=== PATIENT | female | born 1995 | race Caucasian/White ===

== ENCOUNTER 2024-03-01 00:01 | Inpatient (IN) | payer OTHER, SELFPAY ==
[2024-03-01] VITALS (11 sets, daily range): BP systolic 89–122; BP diastolic 55–80; PULSE 82–107; RESP 16–20; TEMP 36.4–37; O2SAT 92–99; BMI 34.8
--- NOTE | 2024-03-01 00:24 | ECG_ITS ---
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
[2024-03-01] MEDS: nicotine 21 mg Patch 1 PATCH TRANSDERMA ×2 (00:55→08:51)
[2024-03-01 01:01] LABS: Charge for UA Resulting for Rev
--- NOTE | 2024-03-01 01:11 | W.ED.PSYCHS ---
HPI - Psych General: Chief Complaint: Psychiatric Symptoms Stated Complaint: 96 Hour Hold Time Seen by Provider: 03/01/24 00:39 History of Present Illness: Patient presents to the ER by police for 96-hour hold. Patient states has been very depressed cannot handle life anymore due to all the stressors anxiety she has. Patient said she tried to jump off a bridge tonight. Patient used to be on Latuda and Zoloft but quit 2 weeks ago due to fatigue and nightmares. Patient says she gets all of her health care through [employer]. Related Data Allergies Allergy/AdvReac Type Severity Reaction Status Date / Time amoxicillin Allergy ALGY-Rash Verified 03/01/24 00:14 Sulfa (Sulfonamide Allergy ALGY-Rash Verified 03/01/24 00:14 Antibiotics) Review of Systems General: Reports: 10 or more systems reviewed and unremarkable except in HPI and below [facility] Female Reproductive History: Date of last menstrual period: 02/24/24 Physical Exam Const: COMMON NORMALS: no acute distress, average body habitus, patient oriented x3, no limitations, healthy appearing, alert and well nourished HENMT: COMMON NORMALS: normocephalic, atraumatic, hearing grossly normal bilaterally, external ears normal, Normal external nose present and moist oral mucous membranes HEAD & SCALP: normocephalic and atraumatic NOSE: Normal external nose present EXTERNAL EAR: Yes external ears normal Neck/C-Spine: COMMON NORMALS: no JVD Chest: COMMONS NORMALS: normal inspection of the chest and normal palpation of entire chest wall Resp: COMMON NORMALS: normal respiratory effort, No retractions, No use of accessory muscles and clear to auscultation bilaterally AUSCULTATION: clear to auscultation bilaterally Cardio: COMMON NORMALS: no JVD, regular rate, regular rhythm, S1 normal heart sound present, S2 normal heart sound present, No gallops present (Cardio), No clicks present (Cardio), No murmurs present (Cardio) and No rub (Cardio) RATE: regular rate RHYTHM: regular rhythm HEART SOUNDS: S1 normal heart sound present and S2 normal heart sound present GI: COMMON NORMALS: Normal to inspection, nondistended, normoactive bowel sounds present, Soft to palpation, No hepatosplenomegaly present and no masses PALPATION: Yes Soft to palpation and Yes No hepatosplenomegaly present Neuro: COMMON NORMALS: patient oriented x3 SENSORIUM/ORIENTATION: Yes alert Course Vital Signs: Vital signs: Vital Signs Temperature 98.2 F 03/01/24 00:09 Pulse Rate 100 03/01/24 00:53 Respiratory Rate 18 03/01/24 00:53 Blood Pressure 117/76 03/01/24 00:09 Pulse Oximetry 99 03/01/24 00:53 MDM - Psych Medical Decision Making Once patient is medically cleared Dr. Paris was consulted who agreed to place patient in MPU for further evaluation treatment. Differential Diagnosis Likely suicidal ideation and depression Medical Records I reviewed the patient's medical records. Lab Data I reviewed the patient's lab results. 03/01/24 01:14 03/01/24 01:14 Laboratory Results WBC 10.98 10^3/uL (3.29-11.43) 03/01/24 01:14 RBC 4.84 10^6/uL (3.85-5.65) 03/01/24 01:14 Hgb 14.00 g/dL (11.27-16.99) 03/01/24 01:14 Hct 42.6 % (36-47) 03/01/24 01:14 MCV 88.0 fl (85-98) 03/01/24 01:14 MCH 28.9 pg (27-33) 03/01/24 01:14 MCHC 32.9 g/dL (30-55) 03/01/24 01:14 RDW 12.7 % (12.1-15.1) 03/01/24 01:14 Plt Count 395 10^3/cmm (157-399) 03/01/24 01:14 MPV 8.9 fL (7.4-10.4) 03/01/24 01:14 Neut % (Auto) 62.7 % 03/01/24 01:14 Lymph % (Auto) 30.2 % 03/01/24 01:14 [place] % (Auto) 5.5 % 03/01/24 01:14 Eos % (Auto) 0.7 % 03/01/24 01:14 Baso % (Auto) 0.4 % 03/01/24 01:14 Neut # (Auto) 6.89 10^3/uL (1.8-7.7) 03/01/24 01:14 Lymph # (Auto) 3.3 10^3/uL (0.8-4.8) 03/01/24 01:14 [place] # (Auto) 0.6 10^3/uL (0.2-0.9) 03/01/24 01:14 Eos # (Auto) 0.1 10^3/uL (0.0-0.8) 03/01/24 01:14 Baso # (Auto) 0.0 10^3/uL (0.0-0.1) 03/01/24 01:14 Nucleated RBC % (auto) 0 % 03/01/24 01:14 Nucleated RBCs # 0.0 /100WBC 03/01/24 01:14 Sodium 145 mmol/L (136-145) 03/01/24 01:14 Potassium 3.5 mmol/L (3.5-5.1) 03/01/24 01:14 Chloride 113 mmol/L (98-107) H 03/01/24 01:14 Carbon Dioxide 20 mmol/L (22-29) L 03/01/24 01:14 Anion Gap 15.5 (5-19) 03/01/24 01:14 BUN 12 mg/dL (6-20) 03/01/24 01:14 Creatinine 0.7 mg/dL (0.5-0.9) 03/01/24 01:14 GFR Calculation 98.9 mL/min (90-130) 03/01/24 01:14 Glucose 134 mg/dL (65-115) H 03/01/24 01:14 Calculated Osmolality 302 mOsm/kg (285-295) H 03/01/24 01:14 Calcium 8.8 mg/dL (8.5-10.5) 03/01/24 01:14 Total Bilirubin 0.2 mg/dL (0.15-1.2) 03/01/24 01:14 AST 19 U/L (0-32) 03/01/24 01:14 ALT 29 U/L (0-33) 03/01/24 01:14 Alkaline Phosphatase 77 U/L (35-105) 03/01/24 01:14 Total Protein 7.2 g/dL (6.6-8.7) 03/01/24 01:14 Albumin 4.0 g/dL (3.5-5.2) 03/01/24 01:14 Globulin 3.2 g/dL (1.3-4.6) 03/01/24 01:14 Urine Color Yellow (Yellow) 03/01/24 00:45 Urine Appearance Cloudy (CLEAR) A 03/01/24 00:45 Urine pH 5.5 (5-7) 03/01/24 00:45 Ur Specific [place] 1.004 (1.005-1.030) L 03/01/24 00:45 Urine Protein Negative (Negative) 03/01/24 00:45 Urine Glucose (UA) Negative (Normal) 03/01/24 00:45 Urine Ketones Negative (Negative) 03/01/24 00:45 Urine Blood Negative (Negative) 03/01/24 00:45 Urine Nitrate Negative (Negative) 03/01/24 00:45 Urine Bilirubin Negative (Negative) 03/01/24 00:45 Urine Urobilinogen 0.2 mg/dL (Negative) 03/01/24 00:45 Ur Leukocyte Esterase Negative (Negative) 03/01/24 00:45 Urine RBC 0-2 /hpf (0-2) 03/01/24 00:45 Urine WBC 6-10 /hpf (0-5) 03/01/24 00:45 Ur Squamous Epith Cells 6-10 /hpf (0-5) 03/01/24 00:45 Amorphous Sediment Not Reportable 03/01/24 00:45 Urine Bacteria Trace /hpf (NONE) 03/01/24 00:45 Hyaline Casts 0-4 /lpf H 03/01/24 00:45 Salicylates < 0.3 mg/dL (3-10) L 03/01/24 01:14 Urine Opiates Screen Negative ng/mL (Negative) 03/01/24 00:45 Acetaminophen < 5.0 ug/mL (10-30) L 03/01/24 01:14 Ur Barbiturates Screen Negative ng/mL (Negative) 03/01/24 00:45 Ur Phencyclidine Scrn Negative ng/mL (Negative) 03/01/24 00:45 Ur Amphetamines Screen Negative ng/mL (Negative) 03/01/24 00:45 U Benzodiazepines Scrn Negative ng/mL (Negative) 03/01/24 00:45 Urine Cocaine Screen Negative ng/mL (Negative) 03/01/24 00:45 U Marijuana (THC) Screen Negative ng/mL (Negative) 03/01/24 00:45 Ethyl Alcohol < 10 mg/dL (0-10) 03/01/24 01:14 No radiology studies performed this visit Discharge Plan Discharge Patient Disposition: Admitted As Inpatient Clinical Impression: Suicidal ideation Depression Qualifiers: Depression Type: unspecified Qualified Code(s): F32.A - Depression, unspecified Condition: Stable Coding Level of Care Code ED 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
[2024-03-01 01:13] LABS: Bacteria Urine Trace /hpf; Hyaline Casts Urine 0-4 /lpf; RBC Urine 0-2 /hpf (0-2)
[2024-03-01 01:20] LABS: Amphetamines Screen Urine Negative (Negative); Barbiturates Screen Urine Negative (Negative); Benzodiazepines Screen Urine Negative (Negative); Cocaine Screen Urine Negative (Negative); Opiate Screen Urine Negative (Negative); PCP Screen Urine Negative (Negative); THC Screen Urine Negative (Negative)
[2024-03-01 01:23] LABS: Basophils % 0.4 %; Eosinophils # 0.1 10^3/uL (0.0-0.8); Eosinophils % 0.7 %; Hematocrit 42.6 % (36-47); Lymphocytes # 3.3 10^3/uL (0.8-4.8); Lymphocytes % 30.2 %; Mean Corpuscular HGB Conc 32.9 g/dL (30-55); Mean Corpuscular Hemoglobin 28.9 pg (27-33); Mean Platelet Volume 8.9 fL (7.4-10.4); Monocytes # 0.6 10^3/uL (0.2-0.9); Monocytes % 5.5 %; Neutrophils # 6.89 10^3/uL (1.8-7.7); Neutrophils % 62.7 %; Nucleated Red Blood Cells % 0 %; Platelet Count 395 10^3/cmm (157-399); Red Blood Count 4.84 10^6/uL (3.85-5.65); Red Cell Distribution Width 12.7 % (12.1-15.1); White Blood Count 10.98 10^3/uL (3.29-11.43)
[2024-03-01 01:29] LABS: Bilirubin Urine Negative (Negative); Blood Urine Negative (Negative); Glucose Urine UA Negative (Normal); Ketones Urine Negative (Negative); Leukocyte Esterase Urine Negative (Negative); Nitrate Urine Negative (Negative); Protein Urine Negative (Negative); Specific Gravity, Urine 1.004 (1.005-1.030); Urine Appearance Cloudy (CLEAR); Urine Color Yellow (Yellow); Urobilinogen Urine 0.2 mg/dL (Negative); pH Urine 5.5 (5-7)
[2024-03-01 01:44] LABS: Alanine Aminotransferase 29 U/L (0-33); Alkaline Phosphatase 77 U/L (35-105); Anion Gap 15.5 (5-19); Aspartate Amino Transferase 19 U/L (0-32); Blood Urea Nitrogen 12 mg/dL (6-20); Calcium 8.8 mg/dL (8.5-10.5); Carbon Dioxide 20 mmol/L (22-29); Chloride 113 mmol/L (98-107); Creatinine Clr Calc Pharmacy 130.3895; Globulin 3.2 g/dL (1.3-4.6); Glomerular Filtration Rate 98.9 mL/min (90-130); Glucose 134 mg/dL (65-115); Osmolality Calculated 302 mOsm/kg (285-295); Potassium 3.5 mmol/L (3.5-5.1); Sodium 145 mmol/L (136-145); Total Bilirubin 0.2 mg/dL (0.15-1.2); Total Protein 7.2 g/dL (6.6-8.7)
[2024-03-01 01:47] LABS: Acetaminophen < 5.0 ug/mL (10-30); Alcohol Level < 10 mg/dL (0-10); Salicylate < 0.3 mg/dL (3-10)
--- NOTE | 2024-03-01 04:07 | PC.NURSE ---
96 Hour Involuntary Hold Patient Rights have been read to the patient and a copy of the same has been given to her. Patient verbalizes understanding of Rights. Hand Candy Dipper Kt was present at the time of presentation of Rights.
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
--- NOTE | 2024-03-01 09:37 | PC.NURSE ---
Called for resp therapist to respond to pt for neb treatment.
[2024-03-01] MEDS: OLANZapine 5 mg ODT PO (09:47)
[2024-03-01] MEDS: albuterol 2.5 mg/3 mL Neb INHALATION (09:50)
--- NOTE | 2024-03-01 11:57 | PC.NURSE ---
PT CURRENTLY DENIES SI/HI/AH/VH. PT CURRENTLY DENIES DEPRESSION. PT WAS HAVING A PANIC ATTACK AND HYPERVENTILATING. PT SPO2% STAY WNL DURING EPISODE. PT STATED THAT SHE HAS ANXIETY INDUCED ASTHMA THIS NURSE WORKED WITH PT ON GROUNDING TECHNIQUES AND DEEP BREATHING TECHNIQUES. RESPIRATORY THERAPY WAS CALLED TO PERFORM A BREATHING TREATMENT. THIS NURSE SAT WITH PT AND PT CALMED AND BREATHING SLOWED BEFORE RESPIRATORY ARRIVED ON THE UNIT. PT STILL WANTED TO HAVE THE BREATHING TREATMENT. PT RECEIVED AN SUBLINGUAL 5MG OLANZAPINE FOR THE AGITATION. PT CURRENT NEEDS ARE MET AT THIS TIME.
[2024-03-02 06:00] VITALS: BP 104/65; PULSE 93; RESP 16; O2SAT 97
[2024-03-02] MEDS: nicotine 21 mg Patch 1 PATCH TRANSDERMA (07:47)
--- NOTE | 2024-03-02 08:26 | PC.NURSE ---
Patient denies avh and si/hi. However, she paused for quite a while when asked if she had been hearing anything abnormal this morning that she believed was not there. Patient says she slept okay . This RN asked her if she felt her depression was getting better or worsening and she replied, about the same in general.
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
[2024-03-02] MEDS: paliperidone ER 3 mg Tablet PO (12:18)
[2024-03-02 14:00] VITALS: BP 96/67; PULSE 83; RESP 18; TEMP 36.8; O2SAT 98
--- NOTE | 2024-03-02 14:31 | PC.NURSE ---
Patient's mother called and stated the patient was schedule for an MRI on , 03/06/24, at [facility] neurology in [place], [place]. This RN let her know the doctor and social sciences chair would be made aware of the concerns in case the patient were to have to stay past that date.
--- NOTE | 2024-03-02 17:53 | PC.NURSE ---
PT HAS SCHEDULED DOSE OF DESMOPRESSIN 0.2MG WHICH PT TAKES FOR DIABETES INSIPIDUS. PT HAS HAD CONTINUED SOFT BLOOD PRESSURES SINCE ARRIVAL. PT HAS INCREASED WATER INTAKE AND HAS CONTINUED EATING ALL MEALS. PT HAS NOW BEGUN TO REPORT LETHARGY AND FEELING UNWELL. THIS NURSE SPOKE WITH PHYSICIAN WHO ORDERED TO HOLD THIS DOSE OF MEDICATION. DUE TO IT BEING CLOSE TO DOCTOR SWITCH PHYSICINA WILL BE PLACING A MED CONSULT AFTER 7PM
[2024-03-02] MEDS: nicotine 2 mg Gum BUCCAL ×2 (18:51→20:50)
[2024-03-02 20:00] VITALS: BP 94/62; PULSE 97; RESP 17; TEMP 37.2; O2SAT 98
[2024-03-02 20:24] VITALS: BP 107/75; BP 118/83; BP 94/67
[2024-03-02 20:27] LABS: Basophils % 0.4 %; Eosinophils # 0.2 10^3/uL (0.0-0.8); Eosinophils % 1.8 %; Hematocrit 44.3 % (36-47); Lymphocytes # 3.8 10^3/uL (0.8-4.8); Lymphocytes % 35.4 %; Mean Corpuscular HGB Conc 31.8 g/dL (30-55); Mean Corpuscular Hemoglobin 29.1 pg (27-33); Mean Corpuscular Volume 91.5 fl (85-98); Mean Platelet Volume 8.7 fL (7.4-10.4); Monocytes # 0.5 10^3/uL (0.2-0.9); Neutrophils # 6.11 10^3/uL (1.8-7.7); Neutrophils % 56.8 %; Nucleated Red Blood Cells % 0 %; Platelet Count 371 10^3/cmm (157-399); Red Blood Count 4.84 10^6/uL (3.85-5.65); Red Cell Distribution Width 12.6 % (12.1-15.1); White Blood Count 10.75 10^3/uL (3.29-11.43)
[2024-03-02 20:46] LABS: Alanine Aminotransferase 29 U/L (0-33); Alkaline Phosphatase 77 U/L (35-105); Aspartate Amino Transferase 20 U/L (0-32); Blood Urea Nitrogen 9 mg/dL (6-20); Carbon Dioxide 23 mmol/L (22-29); Chloride 107 mmol/L (98-107); Globulin 3.2 g/dL (1.3-4.6); Glomerular Filtration Rate 98.9 mL/min (90-130); Glucose 85 mg/dL (65-115); Lactic Sepsis W/Reflex 1.3 mmol/L (0.5-2.2); Magnesium 2.3 mg/dL (1.7-2.3); Osmolality Calculated 284 mOsm/kg (285-295); Sodium 138 mmol/L (136-145); Total Bilirubin 0.3 mg/dL (0.15-1.2); Total Protein 7.2 g/dL (6.6-8.7)
[2024-03-02] MEDS: acetaminophen 325 mg Tablet 650 MG PO (20:50)
--- NOTE | 2024-03-02 20:52 | P.CONIM_ITS ---
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 She has no complaints, no lightheadedness, dizziness, no nausea, no vomiting, no polyuria, no polydipsia, no abdominal pain, no dysuria, no hematuria, no chest pain, no palpitations Review of Systems 2 Const: Denies: fever(s) Card: Denies: chest pain Resp: Denies: dyspnea GI: Denies: abdominal pain : Denies: urinary frequency Medications/Allergies Home Medications Medication Instructions Recorded Confirmed Last Taken Type albuterol sulfate 90 mcg/actuation 2 puff inhalation QID PRN 03/01/24 03/01/24 Unknown History aerosol inhaler (Proventil HFA) Shortness Of Breath Or Wheezing desmopressin 0.2 mg tablet (DDAVP) 0.2 mg PO QID 03/01/24 03/01/24 Unknown History diclofenac sodium 75 mg 75 mg PO BID PRN Pain 03/01/24 03/01/24 Unknown History tablet,delayed release Allergies Allergy/AdvReac Type Severity Reaction Status Date / Time amoxicillin Allergy ALGY-Rash Verified 03/01/24 00:14 Sulfa (Sulfonamide Allergy ALGY-Rash Verified 03/01/24 00:14 Antibiotics) Current Medications Generic Name Dose Route Start Last Admin Trade Name Freq PRN Reason Stop Dose Admin Acetaminophen 650 mg 03/01/24 03:31 03/02/24 20:50 Acetaminophen 325 Mg Tablet PO 650 mg Q4H PRN Administration MILD PAIN Albuterol Sulfate 2.5 mg 03/01/24 08:00 03/01/24 09:50 Albuterol 2.5 Mg/3 Ml Neb INHALATION 2.5 mg QID.RESPIRATORY PRN Administration SHORTNESS OF BREATH Desmopressin Acetate 0.2 mg 03/01/24 09:00 03/02/24 20:22 Desmopressin 0.2 Mg Tablet PO 0.2 mg QID KENDRA Administration Nicotine 1 patch 03/01/24 03:31 09/08/24 07:47 Nicotine 21 Mg Patch TRANSDERMA 1 patch DAILY PRN Administration NICOTINE WITHDRAWAL Nicotine Polacrilex 2 mg 03/01/24 03:31 03/02/24 20:50 Nicotine 2 Mg Gum BUCCAL 2 mg Q2H PRN Administration NICOTINE WITHDRAWAL Olanzapine 5 mg 03/01/24 03:31 03/01/24 09:47 Olanzapine 5 Mg Odt PO 5 mg Q4H PRN Administration Agitation/Psychosis Paliperidone 3 mg 03/02/24 09:50 03/02/24 12:18 Paliperidone Er 3 Mg Tablet PO 3 mg DAILY KENDRA Administration PFSH Acute 2 Female Reproductive History: Date of last menstrual period: 02/22/24 Vitals/I&O/Wt Last Vital Signs Temp 98.3 F 03/02/24 14:00 Pulse 83 03/02/24 14:00 Resp 18 03/02/24 14:00 BP 94/67 03/02/24 20:24 Pulse Ox 98 03/02/24 14:00 O2 Del Method Room Air 03/02/24 06:00 Weight last 48 hrs Weight 91.229 kg Weight 92.079 kg Physical Exam 2 Const: COMMON NORMALS: no acute distress and patient oriented x3 HENMT: COMMON NORMALS: normocephalic HEAD & SCALP: normocephalic Neck/C-Spine: COMMON NORMALS: no JVD Resp: COMMON NORMALS: normal respiratory effort, No retractions, No use of accessory muscles and clear to auscultation bilaterally AUSCULTATION: clear to auscultation bilaterally Cardio: COMMON NORMALS: no JVD, regular rate, regular rhythm, S1 normal heart sound present and S2 normal heart sound present RATE: regular rate RHYTHM: regular rhythm HEART SOUNDS: S1 normal heart sound present and S2 normal heart sound present GI: COMMON NORMALS: Normal to inspection, nondistended, normoactive bowel sounds present and non-tender Extremity: COMMON NORMALS: no calf tenderness and no pedal edema Neuro: COMMON NORMALS: patient oriented x3, CN's II-XII intact bilaterally and moves all extremities Psych: COMMON NORMALS: mental status grossly normal Data 03/02/24 20:18 03/02/24 20:18 A&P Assessment and plan (1) Low blood pressure: (2) Diabetes insipidus: Plan Central diabetes insipidus -With low blood pressures, asymptomatic ? Will check orthostatic vitals -Continue desmopressin 0.2 mg p.o. 4 times daily ? Monitor blood pressure closely ? CBC, CMP, lactic acid, A1c, hCG, lactic acid ? Consult Attestations 2 Medical Necessity Statement: Patient requires hospitalization for suicidal ideation, depression Diagnoses Low blood pressure I95.9 Diabetes insipidus E23.2
[2024-03-02 20:53] LABS: Procalcitonin 0.03 ng/mL (0-0.5)
[2024-03-02 21:09] LABS: HCG, Serum Qual Negative (Negative)
[2024-03-02 21:37] LABS: Estmated Average Glucose 103; Hemoglobin A1C 5.2 % (4.0-6.0)
--- NOTE | 2024-03-02 22:16 | PC.NURSE ---
Dr. Alexander Called this nurse and ordered that we continue the pts Desmopressin 0.2mg Po as ordered. Physician also ordered orthostatic vitals to be done. Once physician visited the pt he told this nurse that we will continue the Desmopressin as ordered and change vitals signs to Q6Hrs.
[2024-03-03] VITALS: BP 90/62; PULSE 84; RESP 15; O2SAT 97
[2024-03-03 06:00] VITALS: BP 106/68; PULSE 85; RESP 16; TEMP 36.6; O2SAT 98
[2024-03-03] MEDS: nicotine 2 mg Gum BUCCAL (07:39)
--- NOTE | 2024-03-03 07:50 | PC.NURSE ---
Patient cooperative during morning assessment. Patient denies anxiety, depression, suicidal ideation, homicidal ideation, and AVH. Patient has flat affect.
[2024-03-03] MEDS: nicotine 21 mg Patch 1 PATCH TRANSDERMA (07:57)
[2024-03-03] MEDS: paliperidone ER 3 mg Tablet PO (08:07)
[2024-03-03 12:00] VITALS: BP 107/75; PULSE 99; RESP 17; TEMP 37.3; O2SAT 97
[2024-03-03 18:00] VITALS: BP 118/83; PULSE 96; RESP 18; TEMP 37.2; O2SAT 97
[2024-03-03 19:37] VITALS: BP 121/83; PULSE 100; RESP 16; TEMP 37.1; O2SAT 97
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
--- NOTE | 2024-03-03 21:46 | P.PN_ITS ---
Subjective 2 Subjective: She reports she is doing okay. Denies lightheadedness. Denies chest pain or pressure, fatigability or shortness of breath. Vitals/I&O/Wt Last Vital Signs Temp 98.8 F 03/03/24 19:37 Pulse 100 03/03/24 19:37 Resp 16 03/03/24 19:37 BP 121/83 03/03/24 19:37 Pulse Ox 97 03/03/24 19:37 O2 Del Method Room Air 03/03/24 18:00 Weight last 48 hrs Weight 91.229 kg Physical Exam 2 Const: COMMON NORMALS: patient oriented x3 and alert GENERAL APPEARANCE: c ooperative ORIENTATION/CONSCIOUSNESS: Yes awake Resp: COMMON NORMALS: normal respiratory effort and clear to auscultation bilaterally AUSCULTATION: clear to auscultation bilaterally Neuro: COMMON NORMALS: patient oriented x3 and moves all extremities S ENSORIUM/ORIENTATION: Yes alert Data 03/02/24 20:18 03/02/24 20:18 A&P Assessment and plan (1) Low blood pressure: Reviewed vitals, CBC, CMP, UA, UDS, hCG, lactic acid, psychiatry note. Discussed with psychiatrist. Low blood pressure resolved. Maintaining blood pressure. Continue desmopressin. Follow-up with PCP. Has an appointment scheduled in June with endocrinology, if continues to maintain blood pressure follow-up with endocrinology continuing increased dose of desmopressin. Avoid medications that may decrease blood pressure. Will sign off at current time, feel free to reconsult in case of any additional issues. (2) Diabetes insipidus: (3) Depression: Reviewed psychiatry note, continue psychiatric assessment management. Follow-up with PCP and endocrinology after discharge. Discussed with psychiatrist. Qualifiers: Depression Type: unspecified Qualified Code(s): F32.A - Depression, unspecified (4) Suicidal ideation: Plan Central diabetes insipidus Attestations 2 Medical Necessity Statement*: Continue psychiatric assessment and management. , Moderate MDM includes number and complexity of problems actively addressed during encounter as documented and High MDM includes amount and/or complexity of data reviewed/ordered [ previous or external records, resulted lab(s)/test(s) and other healthcare professional discussion] as documented Diagnoses Low blood pressure I95.9 Diabetes insipidus E23.2 Depression F32.A Depression Type: unspecified Suicidal ideation R45.851
[2024-03-04 06:00] VITALS: BP 98/67; PULSE 73; RESP 16; TEMP 36.7; O2SAT 96
[2024-03-04] MEDS: nicotine 2 mg Gum BUCCAL ×2 (06:08→08:19)
--- NOTE | 2024-03-04 08:11 | PC.NURSE ---
Patient resting in bed this morning. She endorses poor sleep and says she tossed and turned last night. Patient denies si/hi and avh. Patient says she feels her depression is lessening, but her affect is still very flat. No other needs voiced at this time.
[2024-03-04] MEDS: paliperidone ER 6 mg Tablet PO (08:19)
[2024-03-04] MEDS: fluoxetine 20 mg Capsule PO (08:21)
[2024-03-04] MEDS: nicotine 21 mg Patch 1 PATCH TRANSDERMA (09:47)
[2024-03-04 12:00] VITALS: BP 133/80; PULSE 115; RESP 17; TEMP 37.1; O2SAT 95
[2024-03-04 17:23] VITALS: BP 108/60; PULSE 106; RESP 18; TEMP 37.2; O2SAT 98
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
[2024-03-04] MEDS: nicotine 4 mg lozenge MUCOUS MEM (21:03)
[2024-03-04 23:55] VITALS: BP 124/87; PULSE 71; RESP 16; TEMP 36.7; O2SAT 99
[2024-03-04 23:56] VITALS: BP 67/47
[2024-03-05 06:00] VITALS: BP 110/73; PULSE 82; RESP 16; TEMP 36.8; O2SAT 97
[2024-03-05] MEDS: nicotine 21 mg Patch 1 PATCH TRANSDERMA (06:57)
[2024-03-05] MEDS: fluoxetine 20 mg Capsule PO (08:12)
[2024-03-05] MEDS: paliperidone ER 6 mg Tablet PO (08:12)
[2024-03-05 10:10] VITALS: BP 110/73; PULSE 82; RESP 16; TEMP 36.8; O2SAT 97
== END 2024-03-05 13:47 | disposition home or self-care (01) | DRG 881 ==
LOC: ER 01:52 → NP 02:03
PROVIDERS: Family Medicine; Admitting Provider Psychiatry & Neurology Psychiatry; Emergency Provider Emergency Medicine; Visit Provider Psychiatry & Neurology Psychiatry
DX: F32.A Depression, unspecified (principal); R45.851 Suicidal ideations; E23.2 Diabetes insipidus; F60.89 Other specific personality disorders; F41.9 Anxiety disorder, unspecified; F43.10 Post-traumatic stress disorder, unspecified; R03.1 Nonspecific low blood-pressure reading; F17.290 Nicotine dependence, other tobacco product, uncomplicated; E66.9 Obesity, unspecified; Z68.34 Body mass index [BMI] 34.0-34.9, adult; Z91.410 Personal history of adult physical and sexual abuse; Z91.52 Personal history of nonsuicidal self-harm
CPT/HCPCS: 36415; 80053; 80306; 80307; 81003; 81015; 83036; 83605; 83735; 84145; 84703; 85025; 86140; 93005; 94640; 97150; 97165; 99285; J7613